=== PATIENT | male | born 1955 ===

== ENCOUNTER 2022-01-18 14:20 | Emergency (ER) | payer OTHER, MEDICAID ==
[~2022-01-18] VITALS: Ht 180.3 cm; Wt 93.6 kg
[2022-01-18 15:30] VITALS: BP 145/91
== END 2022-01-18 18:28 | disposition home or self-care (01) ==
LOC: ER 14:20
DX: S00.83XA Contusion of other part of head, initial encounter (principal); E11.9 Type 2 diabetes mellitus without complications; W22.8XXA Striking against or struck by other objects, initial encounter; Y93.89 Activity, other specified; Y92.89 Other specified places as the place of occurrence of the external cause; Y99.8 Other external cause status
CPT/HCPCS: 70450